=== PATIENT | male | born 1960 ===

== ENCOUNTER 2020-06-26 15:03 | Emergency (ER) | payer SELFPAY ==
[2020-06-26 15:35] VITALS: BP 144/87; PULSE 78
[2020-06-26] MEDS ORDERED: Diphtheria,Pertussis(Acell),Tetanus Vaccine 0.5 ML SDV IM ONE (16:11)
--- NOTE | 2020-06-26 16:20 | EDM.PDOC ---
ED HPI GENERAL MEDICAL PROBLEM - General Chief Complaint: Bite:Animal, Insect Stated Complaint: DOG BITE Time Seen by Provider: 06/26/20 15:33 Source of Information: Reports: Patient History Limitations: Reports: No Limitations - History of Present Illness INITIAL COMMENTS - FREE TEXT/NARRATIVE: HISTORY AND PHYSICAL: History of present illness: Patient is a 60-year-old male presents to the ED with dog bite on right hand. Patient reports that this happened just prior to arrival to the ED. Patient notes multiple puncture wounds to his right hand from 2 dogs that are his own dogs at home. Patient reports that both dogs are his, they are outside dogs, and they are up-to-date on all of their shots including rabies. Patient complains of pain and swelling in his right hand but denies any other symptoms. Patient does not recall exactly when his last tetanus immunization was, believes it to be greater than 5 years and would like to get it updated today. Patient states his dogs got into a fight and he "got into the middle of it" to try to break it up when he got bit. Patient denies fever, chills, chest pain, shortness of breath, or cough. Denies headache, neck stiff ness, change in vision, syncope, or near syncope. Denies nausea, vomiting, abdominal pain, diarrhea, constipation, or dysuria. Has not noted any blood in urine or stool. Patient has been eating and drinking appropriately. Review of systems: As per history of present illness and below otherwise all systems reviewed and negative. Past medical history: As per history of present illness and as reviewed below otherwise noncontributory. Surgical history: As per history of present illness and as reviewed below otherwise noncontributory. Social history: See social history for further information Family history: As per history of present illness and as reviewed below otherwise noncontributory. Physical exam: General: Patient is alert, oriented, and in no acute distress. Patient sitting comfortably on exam table. Vitals are stable and reviewed by me. HEENT: Atraumatic, normocephalic, pupils equal and reactive bilaterally, negative for conjunctival pallor or scleral icterus, mucous membranes moist, TMs normal bilaterally, throat clear, neck supple, nontender, trachea midline. No drooling or trismus noted. No meningeal signs. No hot potato voice noted. Lungs: Clear to auscultation, breath sounds equal bilaterally, chest nontender. Heart: S1S2, regular rate and rhythm without overt murmur Abdomen: Soft, nondistended, nontender. Negative for masses or hepatosplenomegaly. Negative for costovertebral tenderness. Pelvis: Stable nontender. Genitourinary: Deferred. Rectal: Deferred. Skin: There are multiple small superficial bites to the posterior aspect of right forearm without bleeding. There are also multiple superficial bites on dorsal aspect of right hand. There is a 2cm muscular laceration gaping 3mm wide on dorsal aspect of right hand, medial to distal 5th metacarpal bone with underlying edema. There is also a 1cm subcutaneous laceration on dorsal aspect of right hand between distal 3rd and 4th metacarpal bones and another 1.5cm subcutaneous laceration on dorsal aspect of right hand between 1st and 2nd metacarpal bones. Otherwise, intact, warm, dry. No lesions or rashes noted. Extremities: SEE SKIN; Otherwise, atraumatic, negative for cords or calf pain. Patient has full range of motion of the complete right upper extremity without deficit. Radial pulses grossly intact of the right upper extremity with capillary refill less than 2 seconds. Patient has intact sensation to light and deep touch. Neurovascular unremarkable. Compartments soft. Neuro: Awake, alert, oriented. Cranial nerves II through XII unremarkable. Cerebellum unremarkable. Motor and sensory unremarkable throughout. Exam nonfocal. Notes: Patient was offered pain medication but he declines at this time. Signs and symptoms that were prompt return to the ED thoroughly discussed with patient. Discussed importance for follow-up with a primary care provider. Voices understanding and is agreeable to plan of care. Denies any further questions or concerns at this time. Therapeutics: Tdap, lidocaine, sutures Prescription: Augmentin Impression: Dog bite Hand lacerations, multiple Plan: 1. Keep the area clean and dry. Continue to monitor for signs of infection as discussed. Sutures to be removed in 7-10 days. 2. Tylenol and/or ibuprofen as directed and as needed for pain management and discomfort. 3. Please follow-up with your primary care provider as discussed. Return to the ED as needed and as discussed. Definitive disposition and diagnosis as appropriate pending reevaluation and review of above. Right Hand Pain Score (Numeric/FACES): 4 - Related Data Allergies Allergy/AdvReac Type Severity Reaction Status Date / Time No Known Allergies Allergy Verified 07/08/14 12:08 Home Meds: Home Meds Amoxicillin/Potassium Clav [Augmentin 875-125 Tablet] 1 each PO BID 7 Days #14 tablet 06/26/20 [Rx] Past Medical History - Past Health History Medical/Surgical History: Denies Medical/Surgical History - Infectious Disease History Infectious Disease History: Reports: Chicken Pox, Novel Coronavirus Social & Family History - Family History Family Medical History: No Pertinent Family History - Tobacco Use Tobacco Use Status *Q: Never Tobacco User - Caffeine Use Caffeine Use: Reports: Coffee - Recreational Drug Use Recreational Drug Use: No ED ROS GENERAL - Review of Systems Review Of Systems: Comprehensive ROS is negative, except as noted in HPI. ED EXAM, ANIMAL BITE - Physical Exam Exam: See Below (see dictation) ED ANIMAL BITE PROCEDURES - Laceration/Wound Repair Right Lower Posterior Medial Distal Hand Lac/Wound Length In cm: 2 Appearance: Muscle, Linear, Clean Distal NVT: Neuro & Vascular Intact, No Tendon Injury Anesthetic Type: Local Local Anesthesia - Lidocaine (Xylocaine): 1% Plain Local Anesthetic Volume: 3cc Skin Prep: Chlorhexidine (Hibiciens), Saline (300), Sterile Drape Exploration/Debridement/Repair: Wound Explored, In a Bloodless Field, Explored to Base, No Foreign Material Found Closed With: Sutures Suture Size: 4-0 # of Sutures: 3 (loosly sutured) Suture Type: Silk, Interrupted, Simple Drain Placement: No Sterile Dressing Applied: Nurse Tetanus Status Addressed: Yes Complications: No Right Lower Posterior Midline Distal Hand Lac/Wound Length In cm: 1 Appearance: Subcutaneous, Linear, Clean Distal NVT: Neuro & Vascular Intact, No Tendon Injury Anesthetic Type: Local Local Anesthesia - Lidocaine (Xylocaine): 1% Plain Local Anesthetic Volume: 1cc Skin Prep: Chlorhexidine (Hibiciens), Saline (300), Sterile Drape Exploration/Debridement/Repair: Wound Explored, In a Bloodless Field, Explored to Base, No Foreign Material Found Closed With: Sutures Suture Size: 4-0 # of Sutures: 1 (loosly sutured) Suture Type: Silk, Interrupted, Simple Drain Placement: No Sterile Dressing Applied: Nurse Tetanus Status Addressed: Yes Complications: No Right Upper Posterior Side Proximal Hand Lac/Wound Length In cm: 1.5 Appearance: Subcutaneous, Linear, Clean Distal NVT: Neuro & Vascular Intact, No Tendon Injury Anesthetic Type: Local Local Anesthesia - Lidocaine (Xylocaine): 1% Plain Local Anesthetic Volume: 1cc Skin Prep: Chlorhexidine (Hibiciens), Saline, Sterile Drape Exploration/Debridement/Repair: Wound Explored, In a Bloodless Field, No Foreign Material Found, Wound Margins Revised Closed With: Sutures Suture Size: 4-0 # of Sutures: 2 (loosly sutured) Suture Type: Silk, Interrupted, Simple Sterile Dressing Applied: Nurse Tetanus Status Addressed: Yes Complications: No Course - Vital Signs Last Recorded V/S: Last Vital Signs Temp 96.6 F L 06/26/20 15:33 Pulse 78 06/26/20 15:33 Resp 20 06/26/20 15:33 BP 144/87 H 06/26/20 15:33 Pulse Ox 96 06/26/20 15:33 - Orders/Labs/Meds Meds: Medications Discontinued Medications Generic Name Dose Route Start Last Admin Trade Name Freq PRN Reason Stop Dose Admin Bacitracin 1 dose 06/26/20 16:32 06/26/20 17:08 Bacitracin Oint 1 Gm TOP 06/26/20 16:33 1 dose ONETIME ONE Administration Diphtheria/Tetanus/Acell Pertussis 0.5 ml 06/26/20 16:45 06/26/20 16:42 Boostrix IM 06/26/20 16:46 0.5 ml .ONCE ONE Administration Lidocaine HCl 5 ml 06/26/20 16:01 06/26/20 16:07 Xylocaine-Mpf 1% INJECT 06/26/20 16:02 5 ml ONETIME ONE Administration Departure - Departure Time of Disposition: 16:19 Disposition: Home, Self-Care 01 Clinical Impression: Dog bite Qualifiers: Encounter type: initial encounter Qualified Code(s): W54.0XXA - Bitten by dog, initial encounter Hand laceration Qualifiers: Encounter type: initial encounter Foreign body presence: without foreign body Laterality: right Qualified Code(s): S61.411A - Laceration without foreign body of right hand, initial encounter - Discharge Information Prescriptions: Amoxicillin/Potassium Clav [Augmentin 875-125 Tablet] 1 each PO BID 7 Days #14 tablet Instructions: Animal Bite, Adult, [id number] Referrals: Humberto Vincent MD [Primary Care Provider] - Forms: ED Department Discharge Additional Instructions: The following information is given to patients seen in the emergency department who are being discharged to home. This information is to outline your options for follow-up care. We provide all patients seen in our emergency department with a follow-up referral. The need for follow-up, as well as the timing and circumstances, are variable depending upon the specifics of your emergency department visit. If you don't have a primary care physician on staff, we will provide you with a referral. We always advise you to contact your personal physician following an emergency department visit to inform them of the circumstance of the visit and for follow-up with them and/or the need for any referrals to a consulting specialist. The emergency department will also refer you to a specialist when appropriate. This referral assures that you have the opportunity for follow-up care with a specialist. All of these measure are taken in an effort to provide you with optimal care, which includes your follow-up. Under all circumstances we always encourage you to contact your private physician who remains a resource for coordinating your care. When calling for follow-up care, please make the office aware that this follow-up is from your recent emergency room visit. If for any reason you are refused follow-up, please contact the [facility] at and asked to speak to the emergency department charge nurse. [facility] [address] [place], [place] [id number] [place] [address] 1. Keep the area clean and dry. Continue to monitor for signs of infection as discussed. Sutures to be removed in 7-10 days. 2. Tylenol and/or ibuprofen as directed and as needed for pain management and discomfort. 3. Please follow-up with your primary care provider as discussed. Return to the ED as needed and as discussed. Sepsis Event Note (ED) - Evaluation Sepsis Screening Result: No Definite Risk - Focused Exam Vital Signs: Vital Signs Temp Pulse Resp BP Pulse Ox 06/26/20 15:33 96.6 F L 78 20 144/87 H 96
[2020-06-26] MEDS ORDERED: Bacitracin Oint 1 GM U/D Packet TOP ONE (16:32)
[2020-06-26] MEDS ORDERED: Diphtheria,Pertussis(Acell),Tetanus Vaccine 0.5 ML Syringe IM ONE (16:45)
== END 2020-06-26 17:14 | disposition home or self-care (01) ==
LOC: MW.ED 15:03
DX: S61.451A Open bite of right hand, initial encounter (principal); Z23 Encounter for immunization; W54.0XXA Bitten by dog, initial encounter
CPT/HCPCS: 12002; 90471; 90715; 99283; 99283-25

== ENCOUNTER 2020-07-06 09:56 | Emergency (ER) | payer BC ==
[2020-07-06 10:23] VITALS: BP 157/82; PULSE 78
== END 2020-07-06 10:10 | disposition left against medical advice (07) ==
LOC: MW.ED 09:56
DX: S61.451D Open bite of right hand, subsequent encounter (principal); W54.0XXD Bitten by dog, subsequent encounter
CPT/HCPCS: 99281

== ENCOUNTER 2022-03-30 13:33 | Inpatient (IN) | payer BC ==
[2022-03-30] MEDS ORDERED: Sodium Chloride 0.9% 2.5 ML Syringe FLUSH PRN (13:55)
[2022-03-30] MEDS ORDERED: Sodium Chloride 0.9% 10 ML Syringe FLUSH PRN (13:55)
[2022-03-30 14:22] LABS: CARBON DIOXIDE,CO2 23.6 mmol/L (21.0-32.0); POTASSIUM,K 4.2 mmol/L (3.5-5.1)
[2022-03-30] MEDS ORDERED: Iopamidol 755 MG/ML 500 ML Multipack Bottle IVPUSH ONE (15:45)
[2022-03-30] MEDS ORDERED: Heparin Sodium 5,000 Units/ML Vial IVPUSH ONE (16:21)
[2022-03-30] MEDS ORDERED: Heparin Sodium/0.45% NaCl 500 ML IV SCH (16:30)
[2022-03-30] MEDS ORDERED: 50% Dextrose in Water 50 ML Syringe IVPUSH PRN (20:15)
[2022-03-30] MEDS ORDERED: Glucagon,Human Recombinant 1 MG Vial IM PRN (20:15)
[2022-03-31 07:16] LABS: BLOOD UREA NITROGEN,BUN 14 mg/dL (7.0-18.0); CARBON DIOXIDE,CO2 25.2 mmol/L (21.0-32.0); CHLORIDE,CL 103 mmol/L (98-107); GLUCOSE RANDOM 185 mg/dL (74-106); POTASSIUM,K 3.8 mmol/L (3.5-5.1); SODIUM,NA 136 mmol/L (136-148)
[2022-03-31 07:19] LABS: ESTIMATED GFR 97 mL/min (>60)
[2022-03-31] MEDS ORDERED: Sodium Chloride 0.9% 10 ML Syringe FLUSH PRN (07:54)
[2022-03-31] MEDS ORDERED: Sodium Chloride 0.9% 2.5 ML Syringe FLUSH PRN (07:54)
[2022-03-31] MEDS ORDERED: Heparin Sodium 5,000 Units/ML Vial IVPUSH PRN (07:55)
[2022-03-31] MEDS ORDERED: Heparin Sodium/0.45% NaCl 500 ML IV SCH (08:00)
[2022-03-31] MEDS: Insulin Aspart 100 Units/ML 3 ML Pen SUBCUT SCH ×2 (08:11→11:40)
[2022-03-31 11:43] VITALS: BP 144/82; PULSE 71
[2022-03-31] MEDS ORDERED: Apixaban 5 MG Tab PO ONE (12:50)
== END 2022-03-31 13:53 | disposition home or self-care (01) | DRG 134 ==
LOC: MW.ED 13:33 → MW.MS 16:58
PROVIDERS: ADMIT Internal Medicine; ATTEND Internal Medicine
DX: I26.99 Other pulmonary embolism without acute cor pulmonale (principal); I10 Essential (primary) hypertension; E11.9 Type 2 diabetes mellitus without complications; Z79.84 Long term (current) use of oral hypoglycemic drugs; Z86.718 Personal history of other venous thrombosis and embolism; Z79.01 Long term (current) use of anticoagulants; Z79.899 Other long term (current) drug therapy; Z86.16 Personal history of COVID-19
CPT/HCPCS: 36415; 71275; 71275-26; 80048; 80053; 82947; 84484; 85025; 85610; 85730; 93005; 93306; 96374; 99285-25; A9270-GY; J1644; J1815-GY; J3490; Q9967